=== PATIENT | female | born 1975 | race Caucasian/White ===

== ENCOUNTER 2022-02-23 15:50 | Emergency (ER) | payer SELFPAY ==
[~2022-02-23] VITALS: Ht 165.1 cm; Wt 68.0 kg
[2022-02-23] MEDS ORDERED: SODIUM CHLORIDE 0.9% 1,000 ML IV ONE (16:30)
[2022-02-23] MEDS ORDERED: ONDANSETRON HCL 4MG/2ML INJ IV STA (16:30)
[2022-02-23] MEDS ORDERED: KETOROLAC 30MG/ML VIAL IV STA (16:30)
[2022-02-23 17:23] VITALS: BP 170/90
[2022-02-23 17:27] LABS: BASOPHILS % 0.5 % (0.0-2.0); EOSINOPHILS % 0.3 % (0.0-5.0); HEMATOCRIT. 32.8 % (36.0-48.0); HEMOGLOBIN. 10.8 g/dL (12.0-16.0); LYMPHOCYTES % 10.4 % (20.0-50.0); MEAN CORPUSCULAR HEMOGLOBIN 25.3 pg (28.0-32.0); MEAN CORPUSCULAR VOLUME 76.8 fL (81.0-99.0); MEAN PLATELET VOLUME 8.2 fl (7.4-10.4); MONOCYTES % 4.6 % (2.0-8.0); NEUTROPHILS % 84.2 % (40.0-76.0); PLATELET 368 x1000/uL (130-400); RED BLOOD CELL COUNT 4.28 mill/uL (4.2-5.4); RED CELL DISTRIBUTION WIDTH 16.8 % (11.6-14.6)
[2022-02-23 17:43] LABS: CHLORIDE 104 mEq/L (98-107)
[2022-02-23 18:13] LABS: HCG SCREEN NEGATIVE
[2022-02-23] MEDS ORDERED: IBUP-2028 MT (19:16)
== END 2022-02-23 20:41 | disposition home or self-care (01) ==
LOC: ER 15:50
DX: G40.909 Epilepsy, unspecified, not intractable, without status epilepticus (principal); I10 Essential (primary) hypertension; Z90.49 Acquired absence of other specified parts of digestive tract
CPT/HCPCS: 36415; 80053; 84703; 85025; 96361; 96374; 99283; J1885; J2405; J7030

== ENCOUNTER 2025-03-30 04:34 | Emergency (ER) | payer OTHER ==
[~2025-03-30] VITALS: Ht 152.4 cm; Wt 61.0 kg
[~2025-03-30 04:34] MED LIST: IBUP-2028 MT
[2025-03-30 04:50] VITALS: O2SAT 100
[2025-03-30 05:47] LABS: CLARITY URINE TURBID (CLEAR); COLOR URINE YELLOW (YELLOW); GLUCOSE URINE NEGATIVE (NEGATIVE); KETONES URINE NEGATIVE (NEGATIVE); LEUKOCYTE ESTERASE URINE 1+ (NEGATIVE); NITRITE URINE NEGATIVE (NEGATIVE); OCCULT BLOOD URINE NEGATIVE (NEGATIVE); PH URINE 8.5 (4.5-8.0); PROTEIN URINE NEGATIVE (NEGATIVE); SPECIFIC GRAVITY URINE 1.013 (1.005-1.030); UROBILINOGEN URINE 0.2 E.U./dL (0.2-1.0)
[2025-03-30 06:08] LABS: BASOPHILS % 0.9 % (0.0-2.0); EOSINOPHILS % 1.8 % (0.0-5.0); HEMATOCRIT. 39.5 % (36.0-48.0); HEMOGLOBIN. 13.5 g/dL (12.0-16.0); LYMPHOCYTES % 26.2 % (20.0-50.0); MEAN PLATELET VOLUME 8.6 fl (7.4-10.4); MONOCYTES % 7.3 % (2.0-8.0); NEUTROPHILS % 63.8 % (40.0-76.0); PLATELET 281 x1000/uL (130-400); RED BLOOD CELL COUNT 4.29 mill/uL (4.2-5.4); RED CELL DISTRIBUTION WIDTH 13.4 % (11.6-14.6)
[2025-03-30 06:15] LABS: CREATININE 0.6 mg/dL (0.6-1.0); UREA NITROGEN BLOOD 11 mg/dL (9-23)
[2025-03-30 06:16] LABS: TROPONIN I HIGH SENSITIVITY 15 ng/L (3.0-34)
[2025-03-30 07:19] LABS: AMORPHOUS SEDIMENT URINE 2+ /lpf; BACTERIA URINE 3+; RBC URINE NONE SEEN /hpf (0-2); SQUAMOUS EPITHELIAL CELL URINE 2+ /lpf (RARE/1+)
[2025-03-30] MEDS: MECLIZINE 25MG TABLET PO ONE (07:26)
[2025-03-30] MEDS: SODIUM CHLORIDE 0.9% 1,000 ML IV ONE (07:26)
[2025-03-30] MEDS: CEFTRIAXONE 1GM/50ML 50 ML IV ONE (07:48)
[2025-03-30] MEDS ORDERED: NITR100C PO (08:28)
[2025-03-30 08:56] VITALS: BP 126/68; PULSE 87; RESP 16; TEMP 36.8; O2SAT 99
== END 2025-03-30 09:00 | disposition home or self-care (01) ==
LOC: ER 04:34
DX: N39.0 Urinary tract infection, site not specified (principal); R42 Dizziness and giddiness; R53.1 Weakness; I10 Essential (primary) hypertension; G43.909 Migraine, unspecified, not intractable, without status migrainosus; Z88.8 Allergy status to other drugs, medicaments and biological substances; Z90.49 Acquired absence of other specified parts of digestive tract
CPT/HCPCS: 99285; 96365; 71045; 80048; 81003; 85025; 87086; 84484; 36415; 93005; J8597; J0696; J7030

== ENCOUNTER 2025-04-06 22:47 | Emergency (ER) | payer OTHER ==
[~2025-04-06] VITALS: Ht 152.4 cm; Wt 59.0 kg
[~2025-04-06 22:47] MED LIST changes: +NITR100C PO
[2025-04-06 23:05] VITALS: O2SAT 100
[2025-04-07] MEDS: KETOROLAC 15MG/ML VIAL IM ONE (00:09)
[2025-04-07] MEDS ORDERED: NAPR-1176 MT (02:10)
[2025-04-07] MEDS ORDERED: LIDO-53 TP (02:10)
[2025-04-07 02:17] VITALS: BP 158/85; PULSE 95; RESP 16; TEMP 36.8; O2SAT 99
== END 2025-04-07 02:19 | disposition home or self-care (01) ==
LOC: ER 22:47
DX: M79.602 Pain in left arm (principal); M25.512 Pain in left shoulder; I10 Essential (primary) hypertension; F41.1 Generalized anxiety disorder; Z79.1 Long term (current) use of non-steroidal anti-inflammatories (NSAID); Z90.49 Acquired absence of other specified parts of digestive tract
CPT/HCPCS: 99283; 81025; 73030; 93005; 96372; J1885; Z7610